=== PATIENT | male | born 1990 | race Caucasian/White ===

== ENCOUNTER 2021-11-22 09:00 | Outpatient (RCR) | payer OTHER, SELFPAY | END 2021-11-22 10:00 | disposition home or self-care (01) | LOC: PT 09:00 | PROVIDERS: PCP Internal Medicine Adolescent Medicine; Visit Provider Internal Medicine Adolescent Medicine | DX: M54.2 Cervicalgia (principal); M54.12 Radiculopathy, cervical region | CPT/HCPCS: 20560; 97010; 97012; 97014; 97110; 97140; 97163; G0283 ==

== ENCOUNTER 2022-11-25 14:47 | Emergency (ER) | payer OTHER, SELFPAY ==
[2022-11-25 15:55] VITALS: BP 0/0; PULSE 0; RESP 0; TEMP -17.7; TEMP 0
== END 2022-11-25 15:56 | disposition left against medical advice (07) ==
PROVIDERS: Emergency Provider Nurse Practitioner; PCP Internal Medicine Adolescent Medicine
DX: Z53.21 Procedure and treatment not carried out due to patient leaving prior to being seen by health care provider (principal)

== ENCOUNTER 2023-09-11 17:11 | Emergency (ER) | payer OTHER, SELFPAY ==
[2023-09-11 17:12] VITALS: BP 174/129; PULSE 128; RESP 20; TEMP 36.7; O2SAT 95; BMI 32.5
--- NOTE | 2023-09-11 17:13 | HMH.EDGENADL ---
Discharge Plan Prescriptions Prescriptions: No Action cyclobenzaprine 10 MG tablet 10 mg PO Q8HP PRN (Reason: Muscle Spasm) Qty: 15 0RF Rx Instructions: will cause drowsiness naproxen 500 MG tablet 500 mg PO BID Qty: 28 0RF Rx Instructions: take with food Referrals Follow up/Referrals: Rodger Pitts MD [Primary Care Provider] - See instructions Discharge ED Provider: Gerald Elder General Adult HPI General Stated complaint: Ao05/30@1700 fall head lac Time Seen by Provider: 09/11/23 17:13 Related Data Previous Rx's Medication Instructions Recorded cyclobenzaprine 10 mg tablet 10 mg PO Q8HP PRN Muscle Spasm #15 07/31/17 tabs naproxen 500 mg tablet 500 mg PO BID #28 tabs 07/31/17 Allergies Allergy/AdvReac Type Severity Reaction Status Date / Time No Known Allergies Allergy Verified 07/17/17 14:37 [facility] Disclaimer: The information contained in this section may have been updated after the patient was seen, as this information can be updated by other users. Social History Smoking Status: Current every day smoker tobacco type: cigarettes alcohol intake: current alcohol intake frequency: a few times a week counseling provided: provider counseling substance use type: denies use
--- NOTE | 2023-09-11 17:23 | CT_ITS ---
PROCEDURE INFORMATION: Exam: CTA Neck With Contrast Exam date and time: 09/11/2023 5:39 PM Age: 33 years old Clinical indication: Injury or trauma; Additional info: Fall head trauma, anisocoria TECHNIQUE: Imaging protocol: Computed tomographic angiography of the neck with contrast. Exam focused on the cervical segments of the vasculature. 3D rendering (Not supervised by radiologist): MIP and/or 3D reconstructed images were created by the technologist. Radiation optimization: All CT scans at this facility use at least one of these dose optimization techniques: automated exposure control; mA and/or kV adjustment per patient size (includes targeted exams where dose is matched to clinical indication); or iterative reconstruction. Contrast material: ISOVUE 370; Contrast volume: 100 ml; Contrast route: INTRAVENOUS (IV); COMPARISON: 1. CT CERVICAL SPINE WO CON 09/11/2023 5:[address] ANGIO HEAD 09/11/2023 5:[address] HEAD/BRAIN WO CON 09/11/2023 5:35 PM FINDINGS: Right common carotid artery: No stenosis. No dissection or occlusion. Right internal carotid artery: No stenosis of the extracranial segment. No dissection or occlusion. Right external carotid artery: No occlusion or stenosis of the origin. Left common carotid artery: No stenosis. No dissection or occlusion. Left internal carotid artery: No stenosis of the extracranial segment. No dissection or occlusion. Left external carotid artery: No occlusion or stenosis of the origin. Right vertebral artery: No stenosis. No dissection or occlusion. Left vertebral artery: No stenosis. No dissection or occlusion. There is a diminutive left vertebral artery. Dental: There is dental amalgam which causes streak artifact and mildly limits evaluation of the oral cavity. Soft tissues: Normal. No significant soft tissue swelling. Bones/joints: No acute fracture. IMPRESSION: No acute vascular injury. REFERENCES: NASCET CRITERIA. The degree of stenosis in the cervical segment of the internal carotid artery is based on NASCET criteria. Normal is no stenosis. Mild is less than 50% stenosis. Moderate is 50-69% stenosis. Severe is 70% to 99% stenosis. Total occlusion is no detectable patent lumen.
--- NOTE | 2023-09-11 17:23 | CT_ITS ---
PROCEDURE INFORMATION: Exam: CT Cervical Spine Without Contrast Exam date and time: 09/11/2023 5:38 PM Age: 33 years old Clinical indication: Injury or trauma; Additional info: Fall head trauma, anisocoria TECHNIQUE: Imaging protocol: Computed tomography of the cervical spine without contrast. Radiation optimization: All CT scans at this facility use at least one of these dose optimization techniques: automated exposure control; mA and/or kV adjustment per patient size (includes targeted exams where dose is matched to clinical indication); or iterative reconstruction. COMPARISON: 1. CR [id number] XR cervical spine 5V 07/31/2017 1:[address] HEAD/BRAIN WO CON 09/11/2023 5:35 PM 3. CR CXR CHEST(2 VIEWS-NOT PORTABLE) 01/27/2017 10:01 AM FINDINGS: Bones: The alignment of the cervical spine is within normal limits. No evidence of acute fractures, dislocations, or subluxations is noted. The vertebral bodies and intervertebral disc spaces are well-preserved. The spinal canal is patent, with no evidence of spinal stenosis or neural foraminal narrowing. No acute posttraumatic changes are observed. There is no evidence of ligamentous injury, soft tissue swelling, or hematoma. While this study was primarily performed in the context of trauma, it is worth noting that there are no significant degenerative changes. Dental: There is dental amalgam which causes streak artifact and mildly limits evaluation of the oral cavity. Prevertebral and retropharyngeal spaces: The prevertebral and paraspinous soft tissues appear normal, without evidence of fluid collection. Lungs: Lung apices are normal. Nerves: No significant nerve root impingement is identified. Soft tissues: See Bones finding. IMPRESSION: In the context of posttraumatic evaluation, the cervical spine CT demonstrates no acute fractures, dislocations, or subluxations. There is no evidence of spinal canal or neural foraminal stenosis. No acute posttraumatic soft tissue or ligamentous injuries are identified.
--- NOTE | 2023-09-11 17:23 | CT_ITS ---
PROCEDURE INFORMATION: Exam: CTA Head With Contrast, Arteriography Exam date and time: 09/11/2023 5:39 PM Age: 33 years old Clinical indication: Injury or trauma; Additional info: Fall head trauma, anisocoria TECHNIQUE: Imaging protocol: Computed tomographic angiography of the head with contrast. Exam focused on the arteries. 3D rendering (Not supervised by radiologist): MIP and/or 3D reconstructed images were created by the technologist. Radiation optimization: All CT scans at this facility use at least one of these dose optimization techniques: automated exposure control; mA and/or kV adjustment per patient size (includes targeted exams where dose is matched to clinical indication); or iterative reconstruction. Contrast material: ISOVUE 370; Contrast volume: 100 ml; Contrast route: INTRAVENOUS (IV); COMPARISON: 1. CT HEAD/BRAIN WO CON 09/11/2023 5:[address] ANGIO NECK 09/11/2023 5:[address] CERVICAL SPINE WO CON 09/11/2023 5:38 PM FINDINGS: ANTERIOR CIRCULATION: Right internal carotid artery: Intracranial segment is patent with no significant stenosis. No aneurysm. Right middle cerebral artery: No occlusion or significant stenosis. No aneurysm. Right anterior cerebral artery: No occlusion or significant stenosis. No aneurysm. Left internal carotid artery: Intracranial segment is patent with no significant stenosis. No aneurysm. Left middle cerebral artery: No occlusion or significant stenosis. No aneurysm. Left anterior cerebral artery: No occlusion or significant stenosis. No aneurysm. POSTERIOR CIRCULATION: Right vertebral artery: No occlusion or significant stenosis. No aneurysm. Left vertebral artery: No occlusion or significant stenosis. No aneurysm. There is a diminutive left vertebral artery with a right dominant vertebrobasilar system. Basilar artery: No occlusion or significant stenosis. No aneurysm. Right posterior cerebral artery: No occlusion or significant stenosis. No aneurysm. Left posterior cerebral artery: No occlusion or significant stenosis. No aneurysm. Brain: No definite mass, mass effect, or midline shift. Cerebral ventricles: No ventriculomegaly. Dental: There is dental amalgam which causes streak artifact and mildly limits evaluation of the oral cavity. Bones/joints: Unremarkable. No acute fracture. Soft tissues: There is a small blush within the right frontal scalp hematoma (image 127 series 5) which could reflect active extravasation. IMPRESSION: 1. There is a small blush within the right frontal scalp hematoma (image 127 series 5) which could reflect active extravasation. 2. No evidence for acute intracranial vascular injury.
--- NOTE | 2023-09-11 17:23 | CT_ITS ---
PROCEDURE INFORMATION: Exam: CT Head Without Contrast Exam date and time: 09/11/2023 5:35 PM Age: 33 years old Clinical indication: Injury or trauma; Fall; Additional info: Fall head trauma, anisocoria TECHNIQUE: Imaging protocol: Computed tomography of the head without contrast. Radiation optimization: All CT scans at this facility use at least one of these dose optimization techniques: automated exposure control; mA and/or kV adjustment per patient size (includes targeted exams where dose is matched to clinical indication); or iterative reconstruction. COMPARISON: CR [id number] XR cervical spine 5V 07/31/2017 1:36 PM FINDINGS: Brain: No evidence for acute intracranial hemorrhage, midline shift, or mass effect. No convincing evidence for acute transcortical infarct. Cerebral ventricles: No ventriculomegaly. Paranasal sinuses: Visualized sinuses are unremarkable. No fluid levels. There are scattered areas of sinus mucosal thickening. Polypoid disease versus retention cyst in the right maxillary sinus. Mastoid air cells: Visualized mastoid air cells are well aerated. Dental: There is dental amalgam which causes streak artifact and mildly limits evaluation of the oral cavity. Bones: Unremarkable. No acute fracture. Soft tissues: There is a 4.5 x 1.7 cm right frontal scalp hematoma (image 43 series 3) . IMPRESSION: 1. There is a 4.5 x 1.7 cm right frontal scalp hematoma (image 43 series 3) . 2. No evidence for acute intracranial hemorrhage, midline shift, or mass effect. No convincing evidence for acute transcortical infarct.
[2023-09-11] MEDS: TET/DIPHTH/PERT-ADULT 0.5ML SYRINGE 0.5 ML IM (17:29)
--- NOTE | 2023-09-11 17:31 | PC.NURSE ---
pt transported to radiology
[2023-09-11] MEDS: 0.9 % SODIUM CHLORIDE 50 ML VIAL IV (17:43)
[2023-09-11] MEDS: IOPAMIDOL-370 (76%);100ML BOTTLE 100 ML IV (17:43)
[2023-09-11] MEDS: SODIUM CHLORIDE 0.9% 10ML SYR (RAD ONLY) 10 ML IV (17:44)
--- NOTE | 2023-09-11 17:53 | ED_ITS ---
Discharge Plan Disposition Patient Disposition: Home, Self-Care Chief Complaint: Fall Prescriptions Prescriptions: No Action dextroamphetamine-amphetamine 20 mg capsule,extended release 24hr 20 mg PO DAILY Referrals Follow up/Referrals: Rodger Pitts MD [Primary Care Provider] - See instructions Activity Restrictions/Add. Instructions Additional Instructions/Restrictions: You can come to the emergency department triage area in 10 days to have the parker removed. Call your family doctor to establish care for this visit to the emergency department and schedule follow-up within 48 hours to ensure improvement. If you have any worsening of your condition or any other concerning signs or symptoms, return to the emergency department or your primary care doctor for further evaluation. Clinical Impressions Clinical Impression: Laceration of head, Fall, Traumatic hematoma of forehead Discharge ED Provider: Gerald Elder General Adult HPI General Chief complaint: Fall Stated complaint: Ao09/10@1700 fall head lac Time Seen by Provider: 09/11/23 17:13 Mode of Arrival: Ambulatory Source of Information: Patient Limitations: No Limitations Description of Symptoms (Recalled from ER Triage Doc. by RN): pt states he was pressure washing a deck when the railing gave way causing him to fall about 5 feet, denies LOC, knot noted above R eye, laceration noted to L side of head, denies blood thinners, unknown on last tetanus, R pupil is larger than L pupil History of Present Illness HPI narrative: Please note that above description of symptoms, in this electronic medical record under categorization of recalled from ER triage doctor by RN are reflective of an initial nursing assessment, however, is not reflective of my full history and physical exam that was personally taken and clarified. Consequentially, this preceding description of symptoms, which may include the patient's categorized chief complaint in the EMR, do not reflect my personal clinical impression, and the ultimate description of history of present illness and patient stated complaints should be deferred to this section of the note. Unless stated otherwise or congruent with this section of the note, additional signs, symptoms, or incongruence should be interpreted as inaccurate with my clinical impression. Related Data Home Medications Medication Instructions Recorded Confirmed dextroamphetamine-amphetamine ER 20 mg PO DAILY 09/11/23 09/11/23 20 mg 24hr capsule,extend release Allergies Allergy/AdvReac Type Severity Reaction Status Date / Time No Known Allergies Allergy Verified 07/17/17 14:37 [facility] Disclaimer: The information contained in this section may have been updated after the francisco ent was seen, as this information can be updated by other users. Social History Smoking Status: Never smoker alcohol intake: current alcohol intake frequency: a few times a week counseling provided: provider counseling substance use type: denies use current occupational status: employed Travel in the last 8 weeks: None ROS Obtained: Yes All systems reviewed & no additional complaints except as documented Physical Exam General General appearance: alert and in no apparent distress Head Head exam: normocephalic and other (4 cm laceration left parietal scalp, hemostatic) Eye Eye exam: Present normal appearance and EOMI; Absent PERRL (Anisocoria right pupil 4 mm, left pupil 3 mm and reactive bilaterally. Consensual responses) ENT ENT exam: Present mucous membranes moist Neck Neck exam: Present normal inspection, full ROM, trachea midline and other (No neck tenderness, placed in cervical collar out of concern for trauma); Absent tenderness Respiratory Respiratory exam: Present normal lung sounds bilaterally; Absent respiratory distress, wheezes, stridor, accessory muscle use or prolonged expiratory phase Cardiovascular Cardiovascular exam: Present regular rate and normal rhythm Abdominal Exam Abdominal exam: Present soft; Absent distention, tenderness, guarding, rebound or rigidity Extremities Exam Extremities exam: Absent edema Neurological Exam Neurological exam: Present alert, oriented X3, CN II-XII intact and normal gait; Absent motor sensory deficit Skin Skin exam: Present warm and dry; Absent diaphoresis or erythema Medical Decision Making Medical Records Medical records reviewed: Yes I reviewed the patient's medical records. [place] Inquiry Pt receiving controlled substance: No [place] was queried for this patient: No Vital Signs: 09/11/23 17:12 09/11/23 18:16 Temperature 98.1 F Temperature Source Oral Pulse Rate 107 H Pulse Rate [Right Radial] 128 H Respiratory Rate 20 Blood Pressure 166/106 H Blood Pressure [Right Arm] 174/129 H Blood Pressure Mean [Right Arm] 144 Blood Pressure Source [Right Arm] Automatic Cuff Blood Pressure Position [Right Arm] Sitting 02 Sat by Pulse Oximetry 95 99 Oxygen Delivery Method Room Air Room Air Orders (Tests/Meds): ED MEDICATIONS Generic Name Dose Route Start Last Admin Trade Name Freq PRN Reason Stop Dose Admin Sodium Chloride 10 ml 09/11/23 17:42 09/11/23 17:44 Sodium Chloride 0.9% 10ml Syr (Rad Only) IV 10/11/23 17:41 10 ml NEEDED PRN Administration Maintain IV Site Discontinued Medications Generic Name Dose Route Start Last Admin Trade Name Stefan PRN Reason Stop Dose Admin Iopamidol 100 ml 09/11/23 17:42 09/11/23 17:43 Iopamidol-370 (76%);100ml Bottle IV 09/11/23 17:43 100 ml ONCE ONE Administration Sodium Chloride 50 ml 09/11/23 17:42 09/11/23 17:43 0.9 % Sodium Chloride 50 Ml Vial IV 09/11/23 17:43 50 ml ONCE ONE Administration Tetanus/Reduced Diphtheria/Acell Pertussis 0.5 ml 09/11/23 17:23 09/11/23 17:29 Tet/Diphth/Pert-Adult 0.5ml Syringe IM 09/11/23 17:24 0.5 ml .ONCE ONE Administration ORDERS Category Date Time Status CT angio head Stat Cat Scan 09/11/23 17:[address] angio neck Stat Cat Scan 09/11/23 17:[address] cervical spine wo con Stat Cat Scan 09/11/23 17:[address] head/brain wo con Stat Cat Scan 09/11/23 17:23 Completed Medical Decision Narrative: Is a 33-year-old male up-to-date on vaccinations other than tetanus presenting with fall. Patient states that he fell while standing on a deck when the raili ng broke, fell forward, hit the left side of his head on a step that was about 3 to 5 feet below. Did not lose consciousness. Stood up, got family member to bring him to the emergency department. Having minimal pain in his head, but having mild to moderate pain right side of his forehead where he does have hematoma. No anticoagulation. No neck pain, back pain, arm or leg weakness, vision changes, or any other concerns. History was obtained via conversation with patient and family. On arrival, patient hemodynamically stable, alert, oriented x4, appropriate, GCS 15, moving all extremities spontaneously, pupils equal and reactive to light. Full physical exam performed and significant for 4 cm laceration on left parietal scalp that is hemostatic. No neck tenderness, placed in cervical collar despite this. Anisocoria with right pupil larger than left, but both are reactive with consensual response. Neurovascularly intact. Differential includes intracranial bleed, skull fracture, cervical spine injury, cervical spine vascular versus neurologic injury, concussion, among others. Imaging independently interpreted and insignificant for any acute clinical findings. CT head without acute intracranial hemorrhage. No obvious skull fracture. Cervical spine within normal limits and no vascular injury. On reevaluation, patient still baseline. Head stapled. Because patient at [facility] without signs or symptoms of clinical decompensation, deemed appropriate for discharge. Results were relayed to patient who voiced understanding and were agreeable to outpatient management and follow up. I discussed my clinical impression with patient and answered all questions. At this time, the evidence for any other entities in the differential is insufficient to warrant any further testing or ED observation. This was explained as well. Advisory was given that persistent or worsening symptoms require further evaluation. I confirmed the understanding of this discussion. Deli [employer]er disclaimer Much of this encounter note is an electronic cage unloader spoken language to printed text. Electronic cage unloader of the spoken language may permit errors. Although I have reviewed the note, some errors may still exist. Procedures Laceration Laceration 1: Site: scalp Side (If applicable): left Size (cm): 4 Description: linear Depth: simple, single layer Pre-repair: wound explored and deep structures intact Skin layer closed with: other ([place]) Number of sutures: 7 Critical Care Critical Care Time Critical Care Time: No
[2023-09-11 18:16] VITALS: BP 166/106; PULSE 107; O2SAT 99
[2023-09-11 19:15] VITALS: BP 162/94; PULSE 101; RESP 18; TEMP 36.7; O2SAT 98
== END 2023-09-11 19:15 | disposition home or self-care (01) ==
PROVIDERS: Emergency Provider Emergency Medicine; PCP Internal Medicine Adolescent Medicine
DX: S01.01XA Laceration without foreign body of scalp, initial encounter (principal); Z23 Encounter for immunization; W17.89XA Other fall from one level to another, initial encounter; R51.9 Headache, unspecified
CPT/HCPCS: 12002; 70450; 70496; 70498; 72125; 90471; 90715; 99285; Q9967

== ENCOUNTER 2023-12-30 08:53 | Outpatient (CLI) | payer OTHER, SELFPAY ==
--- NOTE | 2023-12-30 | CA_ITS ---
APPROVED REPORT EXAM: Comprehensive 2D, Doppler, and color-flow Echocardiogram House Officer: Patricia Edmonds CRT Ht: 6 ft 0 in Wt: 240lbs BSA: 2.30 BP: 166/106 mmHg Indications: Hypertension/HDD 2D Dimensions LA Volume 30.40 mL LA Volume Index 12.90 mL/m2 (M/F) 16-34 M-Mode Dimensions RVDd 3.08 cm (0.9-2.6) LA Diam 3.57 cm (1.9-4.0) LVDd 4.45 cm (3.5-5.7) LVDs 2.98 cm (3.5-5.7) IVSd 1.64 cm (0.6-1.1) PWd 1.17 cm (0.6-1.1) EF (Teich) 61.80% FS 33.00% EDV (Teich) 90.10 mL TAPSE 2.04 (<1.7) ESV (Teich) 34.40 mL LV Diastology E Decel Time 180 (160-240 msec) E/A Ratio 0.99 MED A' 13.80 cm/s LAT A' 9.70 cm/s Aortic Valve AO Peak GR. 7.10 mmHg Mitral Valve MV E Max Nathan. 70.0 (40-130 cm/s) MV A Velocity 71.0 (40-130 cm/s) E/A Ratio 0.99 MV PHT 53.0 ms Pulmonary Valve PV Peak Velocity 192.0 (50-150 cm/s) Tricuspid Valve TR P. Velocity 201.00 cm/s RAP Estimate 10.00 mmHg RVSP 26.20 mmHg Left Ventricle The left ventricle is normal size. The left ventricular systolic function is normal. The left ventricular ejection fraction is within the normal range. There is increased LV wall thickness. There is normal LV segmental wall motion. The left ventricular diastolic function is normal. LVEF is 60%. Right Ventricle The right ventricle is normal size. Atria The left atrium size is normal. The right atrium size is normal. There is no Doppler evidence of interatrial shunt. Aortic Valve The aortic valve opens well. There is no aortic valvular stenosis. No aortic regurgitation is present. Mitral Valve The mitral valve is normal in structure. No evidence of mitral valve stenosis. Trace mitral regurgitation. Tricuspid Valve Tricuspid valve is grossly normal in structure and function. Trace tricuspid regurgitation. There is insufficient TR jet to estimate RVSP. Pulmonic Valve The pulmonary valve is normal in structure. Trace pulmonic regurgitation. Great Vessels The aortic root is normal in size. The ascending aorta is normal in size. IVC is normal in size and collapses >50% with inspiration. Pericardium There is no pericardial effusion. Other Information Study Quality: Adequate Conclusion Normal biventricular systolic function. No significant valvular stenosis or regurgitation. Electronically signed by : Jennifer Owusu MD 12/30/2023 14:59:22
== END 2023-12-30 23:59 | disposition home or self-care (01) ==
LOC: RT 08:54
PROVIDERS: PCP Internal Medicine Adolescent Medicine; Visit Provider Nurse Practitioner Family
DX: I10 Essential (primary) hypertension (principal)
CPT/HCPCS: 93306